=== PATIENT | female | born 1980 | race American Indian/Alaskan Native ===

== ENCOUNTER 2016-12-29 17:58 | Emergency (ER) | payer OTHER ==
--- NOTE | 2016-12-29 18:13 | Emergency Department Report ---
Chief Complaint: High BP Stated Complaint: HBP- 153/94 Time Seen by Provider: 12/29/16 18:06 - HPI History of Present Illness: PT states she started feeling bad yesterday while at work. PT denies hx of htn. PT states when she was not feeling well, she checked her bp and it was elevated. - ROS Review of Systems: + headache + dizziness + nausea - Exam Vital Signs: Vital Signs 12/29/16 18:04 Temperature 97.7 F Pulse Rate 89 Respiratory 18 Rate Blood Pressure 156/111 O2 Sat by Pulse 100 Oximetry Physical Exam: PT looks well, non toxic gcs 15 MSE screening note: Focused history and physical exam performed. Due to findings the following was ordered: ekg, lab, xr , ct ED Disposition for MSE Condition: Stable
--- NOTE | 2016-12-29 18:49 | Cat Scan Report ---
FINAL REPORT EXAM: CT HEAD/BRAIN WO CON HISTORY: Lightheadedness/Dizziness TECHNIQUE: Noncontrast serial axial images from skull base to vertex. PRIORS: None. FINDINGS: There is no mass effect or midline shift. There are no abnormal intra or extra-axial fluid collections. Cortical sulci and lateral ventricles are within normal limits for size and configuration. Basilar cisterns are patent. No acute intracranial hemorrhage is identified. Mild mucosal thickening is seen in the posterior aspect of the right sphenoid sinus. Mastoid air cells are well aerated. No acute osseous abnormality is identified. IMPRESSION: 1. No abnormal mass or acute intracranial hemorrhage is identified.
[2016-12-29 19:43] LABS: Basophils % (Auto) 0.9 % (0.0-1.8); Eosinophils % (Auto) 1.7 % (0.0-4.3); Hematocrit 39.8 % (30.3-42.9); Hemoglobin 12.7 gm/dl (10.1-14.3); Mean Corpuscular HGB Conc 32 % (30-34); Mean Corpuscular Hemoglobin 26 pg (28-32); Mean Corpuscular Volume 82 fl (79-97); Platelet Count 242 K/mm3 (140-440); Red Blood Count 4.83 M/mm3 (3.65-5.03); Red Cell Distribution Width 14.2 % (13.2-15.2); White Blood Count 8.1 K/mm3 (4.5-11.0)
[2016-12-29 19:56] LABS: Creatine Kinase MB 1.1 ng/mL (0.0-4.0)
[2016-12-29 20:00] LABS: Alanine Aminotransferase 67 units/L (7-56); Albumin 3.7 g/dL (3.9-5); Albumin/Globulin Ratio 0.9 %; Alkaline Phosphatase 104 units/L (35-129); Anion Gap 18 mmol/L; BUN/Creatinine Ratio 14.28; Blood Urea Nitrogen 10 mg/dL (7-17); Calcium 9.1 mg/dL (8.4-10.2); Carbon Dioxide 21 mmol/L (22-30); Chloride 101.2 mmol/L (98-107); Glucose 91 mg/dL (65-100); Potassium 4.2 mmol/L (3.6-5.0); Sodium 136 mmol/L (137-145); Total Protein 7.9 g/dL (6.3-8.2)
[2016-12-29] MEDS ORDERED: FIORICET PO ONE (20:58)
[2016-12-29] MEDS ORDERED: HCTZ PO ONE (20:59)
--- NOTE | 2016-12-29 21:03 | Emergency Department Report ---
HPI - General Chief Complaint: High BP Time Seen by Provider: 12/29/16 18:06 - HPI HPI: 36-year-old -[place] female brought to the ED with headache, dizziness for 2 days. Patient checked her blood pressure today at home and it was found to be 150/100. Patient does have a family history of blood pressure. Patient denies any chest pain, shortness of breath. ED Past Medical Hx - Past Medical History Previous Medical History?: Yes Additional medical history: Ectopic , Heart palpitations - Surgical History Past Surgical History?: No - Family History Family history: hypertension - Social History Smoking Status: Never Smoker - Medications Home Medications: Home Medications Medication Instructions Recorded Confirmed Last Taken Type No Known Home Medications [No 12/29/16 12/29/16 Unknown History Reported Home Medications] ED Review of Systems ROS: Stated complaint: HBP- 153/94 Other details as noted in HPI Comment: All other systems reviewed and negative Neurological: headache, weakness Physical Exam - Physical Exam Vital Signs: Vital Signs 12/29/16 12/29/16 12/29/16 18:04 20:18 20:31 Temperature 97.7 F Pulse Rate 89 78 Respiratory 18 22 Rate Blood Pressure 156/111 Blood Pressure 147/103 [Left] O2 Sat by Pulse 100 100 Oximetry Physical Exam: Gen. alert and oriented 3 in no distress Head atraumatic normocephalic Eyes PERR LA EOMI Chest regular rate and rhythm normal S1-S2 lungs clear bilaterally Abdomen soft nondistended Back no point tenderness paravertebral tenderness Neuro no focal deficit. Psych normal mood. ED Course Vital Signs 12/29/16 12/29/16 12/29/16 18:04 20:18 20:31 Temperature 97.7 F Pulse Rate 89 78 Respiratory 18 22 Rate Blood Pressure 156/111 Blood Pressure 147/103 [Left] O2 Sat by Pulse 100 100 Oximetry ED Medical Decision Making - Lab Data Result diagrams: 12/29/16 19:25 12/29/16 19:25 Critical care attestation.: If time is entered above; I have spent that time in minutes in the direct care of this critically ill patient, excluding procedure time. ED Disposition Clinical Impression: Labile hypertension Disposition: DC-01 TO HOME OR SELFCARE Is pt being admited?: No Does the pt Need Aspirin: No Condition: Stable Instructions: Hypertension (ED) Referrals: PRIMARY CARE [Primary Care Provider] - 3-5 Days
[2016-12-29 21:06] VITALS: BP 146/84
--- NOTE | 2016-12-30 07:28 | XRay Report ---
ROUTINE CHEST, TWO VIEWS: HISTORY: Lightheadedness, dizziness, syncope. The trachea, heart, mediastinal contour, lung jay and bony thorax are unremarkable. IMPRESSION: Unremarkable chest x-ray.
== END 2016-12-29 21:12 | disposition home or self-care (01) ==
LOC: ED 17:58
DX: R03.0 Elevated blood-pressure reading, without diagnosis of hypertension (principal)
CPT/HCPCS: 36415; 70450; 71020; 80053; 82550; 82553; 83690; 83880; 84484; 84703; 85025; 93005; 93010

== ENCOUNTER 2017-02-21 00:52 | Emergency (ER) | payer OTHER ==
[2017-02-21 02:41] LABS: Basophils % (Auto) 0.5 % (0.0-1.8); Eosinophils % (Auto) 1.4 % (0.0-4.3); Hematocrit 39.7 % (30.3-42.9); Hemoglobin 13.1 gm/dl (10.1-14.3); Mean Corpuscular HGB Conc 33 % (30-34); Mean Corpuscular Hemoglobin 27 pg (28-32); Mean Corpuscular Volume 82 fl (79-97); Platelet Count 237 K/mm3 (140-440); Red Blood Count 4.88 M/mm3 (3.65-5.03); Red Cell Distribution Width 13.8 % (13.2-15.2)
[2017-02-21 02:46] LABS: Alanine Aminotransferase 31 units/L (7-56); Albumin 3.8 g/dL (3.9-5); Alkaline Phosphatase 73 units/L (35-129); Anion Gap 17 mmol/L; BUN/Creatinine Ratio 16.66; Blood Urea Nitrogen 10 mg/dL (7-17); Calcium 8.9 mg/dL (8.4-10.2); Carbon Dioxide 26 mmol/L (22-30); Glucose 109 mg/dL (65-100); Lipase 36 units/L (13-60); Potassium 3.8 mmol/L (3.6-5.0); Sodium 138 mmol/L (137-145); Total Protein 7.7 g/dL (6.3-8.2)
--- NOTE | 2017-02-21 02:48 | Ultrasound Report ---
FINAL REPORT EXAM: US ABDOMEN LIMITED HISTORY: right upper quadrant pain TECHNIQUE: A limited ultrasound examination of the right upper upper quadrant was obtained. FINDINGS: The gallbladder is normal in size and contains multiple dependent stones. A Sargent's sign was not elicited when scanning over the gallbladder. The common bile duct measures 7.3 millimeters which is mildly prominent. The pancreatic head is normal in size and echotexture. The right kidney shows no evidence of hydronephrosis. IMPRESSION: Gallstones. No secondary signs of acute cholecystitis. 7.3 millimeter common bile duct which is mildly enlarged. A common bile duct stone cannot be excluded.
[2017-02-21] MEDS ORDERED: MORPHINE IM ONE (11:53)
[2017-02-21] MEDS ORDERED: ZOFRAN IM ONE (11:53)
--- NOTE | 2017-02-21 11:59 | Emergency Department Report ---
ED Abdominal Pain HPI - General Chief Complaint: Abdominal Pain Stated Complaint: ABDOMINAL PAIN Time Seen by Provider: 02/21/17 11:45 Source: patient Mode of arrival: Ambulatory Limitations: No Limitations - History of Present Illness Initial Comments: Patient is a 36-year-old female history of gallbladder stones diagnosed 2 years ago Today was right upper quadrant pain started 3 days ago on and off. Patient denied any fever no nausea no vomiting or diarrhea. Patient denied any other symptoms. MD Complaint: abdominal pain -: Gradual Location: RUQ Radiation: none Migration to: no migration Severity scale (0 -10): 8 Quality: aching, sharp Consistency: intermittent Improves With: nothing Worsens With: eating Associated Symptoms: denies: nausea, vomiting, diarrhea - Related Data Previous Rx's Medication Instructions Recorded Last Taken Type Butalb/Acetamin/Caff 50-325-40 1 tab PO Q8HR PRN #14 tablet 12/29/16 Unknown Rx [Fioricet] Hydrochlorothiazide [HCTZ] 25 mg PO QDAY #30 tablet 12/29/16 Unknown Rx Allergies Allergy/AdvReac Type Severity Reaction Status Date / Time No Known Allergies Allergy Unverified 12/29/16 18:04 ED Review of Systems ROS: Stated complaint: ABDOMINAL PAIN Other details as noted in HPI Comment: All other systems reviewed and negative Constitutional: denies: chills, fever Respiratory: denies: cough, orthopnea, shortness of breath Cardiovascular: denies: chest pain, palpitations, dyspnea on exertion Endocrine: denies: excessive sweating Gastrointestinal: abdominal pain. denies: nausea, vomiting, diarrhea, constipation, hematemesis, melena, hematochezia Genitourinary: denies: urgency, frequency Neurological: denies: headache, weakness ED Past Medical Hx - Past Medical History Previous Medical History?: Yes Additional medical history: Ectopic , Heart palpitations - Surgical History Past Surgical History?: No - Social History Smoking Status: Never Smoker Substance Use Type: None - Medications Home Medications: Home Medications Medication Instructions Recorded Confirmed Last Taken Type Butalb/Acetamin/Caff 50-325-40 1 tab PO Q8HR PRN #14 tablet 12/29/16 Unknown Rx [Fioricet] Hydrochlorothiazide [HCTZ] 25 mg PO QDAY #30 tablet 12/29/16 Unknown Rx ED Physical Exam - General Limitations: No Limitations General appearance: alert, in no apparent distress - Head Head exam: Present: normocephalic - Eye Eye exam: Present: normal appearance - Neck Neck exam: Present: normal inspection, full ROM. Absent: tenderness, meningismus, lymphadenopathy - Respiratory Respiratory exam: Present: normal lung sounds bilaterally. Absent: respiratory distress, wheezes, rales, rhonchi, stridor, chest wall tenderness, accessory muscle use, decreased breath sounds, prolonged expiratory - Cardiovascular Cardiovascular Exam: Present: regular rate, normal rhythm, normal heart sounds - GI/Abdominal GI/Abdominal exam: Present: soft, normal bowel sounds. Absent: distended, tenderness, guarding, rebound, rigid, diminished bowel sounds, organomegaly, mass, bruit, pulsatile mass, hernia - Extremities Exam Extremities exam: Present: normal inspection. Absent: tenderness - Back Exam Back exam: Absent: CVA tenderness (R), CVA tenderness (L) - Neurological Exam Neurological exam: Present: alert, oriented X3, CN II-XII intact ED Course Vital Signs 02/21/17 02/21/17 01:46 09:58 Temperature 98.5 F 98 F Pulse Rate 82 54 L Respiratory 18 16 Rate Blood Pressure 140/84 [Left] Blood Pressure 148/93 [Right] O2 Sat by Pulse 100 100 Oximetry - Reevaluation(s) Reevaluation #1: 02/21/17 12:03 Patient's symptoms improved. ED Medical Decision Making - Lab Data Result diagrams: 02/21/17 01:54 02/21/17 01:54 - Radiology Data Radiology results: report reviewed Multiple gallbladder stones no evidence of acute cholecystitis on the right upper quadrant ultrasound. - Medical Decision Making Ultrasound did not show any acute cholecystitis, labs review and is normal. Patient's symptoms improved there is no positive Sargent sign. I advised patient to follow with primary care physician for further evaluation. I referred the patient to Dr. Wolf the surgeon for follow-up. Critical care attestation.: If time is entered above; I have spent that time in minutes in the direct care of this critically ill patient, excluding procedure time. ED Disposition Clinical Impression: Abdominal pain, Gall stone Disposition: -01 TO HOME OR SELFCARE Is pt being admited?: No Condition: Stable Instructions: Abdominal Pain (ED), Biliary Colic (ED) Referrals: CIERRA WOLF DO [Staff Physician] - 3-5 Days
[2017-02-21 12:40] VITALS: BP 113/69
== END 2017-02-21 12:41 | disposition home or self-care (01) ==
LOC: ED 00:52
DX: R10.31 Right lower quadrant pain (principal); K80.80 Other cholelithiasis without obstruction
CPT/HCPCS: 36415; 76705; 80053; 83690; 85025; 96372; 99284; J2270; J2405